=== PATIENT | female | born 2005 | race Hispanic/Latino ===

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

== ENCOUNTER 2024-06-12 19:30 | Emergency (ER) | payer SELFPAY ==
[~2024-06-12] VITALS: Ht 157.5 cm; Wt 85.3 kg
[~2024-06-12 19:30] MED LIST changes: +AMOX1TAB16 PO; +IBUP-2077 PO; +ONDA-243 PO
--- NOTE | 2024-06-12 19:37 | ERN ---
ED Note History of Present Illness Stated Complaint: C/O PAIN WHEN VOIDING W/FREQUENT URINATION Chief Complaint: Painful Urination Time Seen by MD: 19:32 Dictation: PATIENT IS A 18-YEAR-OLD FEMALE COMING IN TODAY WITH SUPRAPUBIC PAIN WITH DYSURIA URINARY URGENCY AND FREQUENCY FOR 2-3 DAYS. NO FEVER NO CHILLS NO NAUSEA VOMITING. NO PRIMARY CARE DOCTOR AND STATES SHE HAS A HISTORY OF UTIS. ONLY GOES TO EMERGENCY ROOMS FOR CARE. Allergies: Coded Allergies: No Known Allergies (Unverified Allergy, Unknown, 10/24/22) Home Meds Active Scripts Ondansetron (Ondansetron Odt) 4 Mg Tab.rapdis, 4 MG PO Q6HPRN PRN for nausea, #12 TAB 0 Refills Prov:[facility] 09/27/23 Ibuprofen (Ibuprofen 800 mg Tab) 800 Mg Tab, 1 TAB PO Q6H PRN for PAIN, #20 TAB 0 Refills Prov:QUE SING[facility] 09/27/23 Amoxicillin/Potassium Clav (Amox Tr-K Clv 875-125 mg Tab) 875 Mg-125 Mg Tablet, 1 EACH PO BID for 10 Days, #20 TAB 0 Refills Prov:FRANCISCO,QUE [facility] 09/27/23 Cephalexin (Cephalexin) 500 Mg Capsule, 500 MG PO TID for 10 Days, #30 CAP Prov:RAYMUNDO RAMIREZ 11/30/22 Famotidine (Pepcid) 40 Mg Tablet, 40 MG PO DAILY for 10 Days, #10 TAB Prov:RAYMUNDO RAMIREZ 11/30/22 Methylprednisolone (Medrol) 4 Mg Tab.ds.pk, 4 MG PO AD for 5 Days, #1 PACK Prov:RAYMUNDO RAMIREZ 11/30/22 Hydroxyzine HCl (Hydroxyzine HCl) 25 Mg Tablet, 25 MG PO BID for 5 Days, #10 TAB Prov:RAYMUNDO RAMIREZ 11/30/22 Reported Medications Ferrous Sulfate (Ferrous Sulfate) 325 Mg Ectab, 325 MG PO DAILYDINNER, #30 TAB.EC 11/12/22 Ibuprofen (Motrin Ib) 200 Mg Capsule, 600 MG PO Q6H, #20 CAP 11/12/22 Past Medical History Past Medical History: No Pertinent History Surgical History: None PSYCH History: no pertinent psych hx History: Not Applicable : 1 RN Note Reviewed/Agreed w/PFSH: Yes Review of System Dictation CONSTITUTIONAL: NEGATIVE EXCEPT FOR HPI HEAD/FACE: NEGATIVE EXCEPT FOR HPI EENT: NEGATIVE EXCEPT FOR HPI RESPIRATORY: NEGATIVE EXCEPT FOR HPI GASTROINTESTINAL/ABDOMINAL: NEGATIVE EXCEPT FOR HPI GENITOURINARY: NEGATIVE EXCEPT FOR HPI URINARY URGENCY AND FREQUENCY WITH DYSURIA MUSCULOSKELETAL: NEGATIVE EXCEPT FOR HPI INTEGUMENTARY: NEGATIVE EXCEPT FOR HPI NEUROLOGICAL/PSYCH: NEGATIVE EXCEPT FOR HPI HEMATOLOGIC/LYMPHATIC: NEGATIVE EXCEPT FOR HPI ALL SYSTEMS NEGATIVE, EXCEPT NOTED ABOVE. 13 POINT REVIEW OF SYSTEMS ASSESSED AND ALL NEGATIVE EXCEPT FOR ABOVE. Initial Vital Sign VS Vital Signs Date Time Temp Pulse Resp B/P (MAP) Pulse Ox O2 Delivery O2 Flow Rate FiO2 06/12/24 19:33 98.4 82 20 138/91 98 Room Air 06/12/24 20:01 0 21 Physical Exam Dictation VITAL SIGNS REVIEWED GENERAL APPEARANCE: ALERT, ORIENTED X 3, N MILD CUTE DISTRESS, WELL DEVELOPED, NOURISHED. HEAD AND FACE: NON-TRAUMATIC. EYES: PERRL, PINK CONJUNCTIVAS, EYELID NO TRAUMA, ANTERIOR CHAMBER WITH ARCUS SENILIS. EARS: PINNAS INTACT AND NO SIGNS OF TRAUMA OR ERYTHEMA EAR CANALS CLEAR AND NO DISCHARGE TM NO ERYTHEMA NOSE: NO DISCHARGE, NO BLEEDING. OROPHARYNX: MOUTH NORMAL, TONGUE PINK, PHARYNX CLEAR,NO ERYTHEMA, TONSILS NO EXUDATES, NO ABSCESSES NOTED, MUCOUS ME MBRANE MOIST NECK: SUPPLE, NON-TENDER, NO THYROMEGALY, NO MASSES, NO JVD, NO BRUITS BREAST:DEFERRED CHEST:NO TENDERNESS, NO CREPITUS, NO PARADOXICAL MOVEMENT, NO RETRACTIONS LUNGS:CLEAR, WELL-VENTILATED, SYMMETRIC, NO RALES, NO WHEEZING, NO RHONCHI, NO STRIDOR, GOOD BREATH SOUNDS BILATERALLY HEART: REGULAR RATE, REGULAR RHYTHM, NO MURMUR, NO GALLOPS VASCULAR: NO PERIPHERAL EDEMA, ABDOMEN: SOFT, POSITIVE BOWEL SOUNDS, NONDISTENDED, NO GUARDING, NONTENDER, NO REBOUND, NO MASSES NO HEPATOMEGALY, NO SPLENOMEGALY, NO FERNANDEZ'S SIGN, NO HERNIAS. RECTAL: DEFERRED GENITAL: DEFERRED NEUROLOGICAL: NORMAL SPEECH, MOTOR FUNCTION INTACT, SENSORY FUNCTION INTACT MUSCULOSKELETAL: NECK NONTENDER, FULL RANGE OF MOTION, BACK NONTENDER, FULL RANGE OF MOTION, EXTREMITIES: NONTENDER, FULL RANGE OF MOTION SKIN: COLOR PINK, DRY, NO TURGOR, NO RASH, NO LACERATIONS, NO ABRASIONS, NO CONTUSIONS. LYMPHATIC: DEFERRED Results (Laboratory/Radiology) Laboratory/Radiology Laboratory Tests Test 06/12/24 19:37 Urine Color LIGHT-YELLOW (YELLOW) Urine Appearance CLOUDY (CLEAR) H Urine pH 5.5 (5.0-8.0) Urine Specific [place] 1.019 (1.001-1.031) Urine Protein 20 mg/dL (NEGATIVE) H Urine Glucose (UA) NEGATIVE mg/dL (NEGATIVE) Urine Ketones 5 mg/dL (NEGATIVE) H Urine Occult Blood MODERATE (NEGATIVE) H Urine Nitrate NEGATIVE (NEGATIVE) Urine Bilirubin NEGATIVE mg/dL (NEGATIVE) Urine Urobilinogen 0.2 mg/dL (0.2-1.0) Urine Leukocyte Esterase 500 Mikayla/uL (NEGATIVE) H Urine RBC 26-50 /HPF (0-1) H Urine WBC TNTC /HPF (0-1) H Urine Squamous Epithelial Cells MOD /HPF (0-2) Urine Non-Squamous Epithelial Cells 1 /HPF (0-2) Urine Other Crystals (Auto) 1 /HPF (None Seen) Urine Bacteria RARE /HPF (None Seen) Labs Reviewed?: Yes ED Course ED Course Orders Procedure Category Date Status Time Urinalysis Profile LAB 06/12/24 Complete 19:34 Acetaminophen 500mg PHA 06/12/24 Complete Tab (Tylenol 500mg T 20:00 Phenazopyridine Hcl PHA 06/12/24 Complete 200 Mg Tab (Pyridium 20:00 Culture Urine GARCIA 06/12/24 Logged 19:53 Current Medications Medications (Trade) Dose Ordered Sig/[place] Route PRN Reason Start Time Stop Time Status Last Admin Dose Admin Acetaminophen (TYLenol 500MG TAB) 1,000 mg ONCE ONCE PO 06/12/24 20:00 06/12/24 20:01 DC 06/12/24 19:58 Phenazopyridine HCl (PYRIdium HCL 200 MG TAB) 200 mg ONCE ONCE PO 06/12/24 20:00 06/12/24 20:01 DC 06/12/24 19:58 Vital Signs Date Time Temp Pulse Resp B/P (MAP) Pulse Ox O2 Delivery O2 Flow Rate FiO2 06/12/24 20:01 98.2 80 18 135/88 98 Room Air* 0 21 06/12/24 19:33 98.4 82 20 138/91 98 Room Air 2014, we will discharge patient home with acute cystitis with hematuria she will be given Augmentin and Pyridium told to take Tylenol for pain and follow up with her doctor. Medical Decision Making MDM Medical discharge making based on urinalysis and treatment of pain. Patient has a acute cystitis with hematuria Discharged home with Augmentin 875b.i.d. for seven days and Pyridium Told increase water intake. And follow up with her doctor DX & DISP Disposition: Discharge Departure Impression: Primary Impression: Acute cystitis with hematuria Additional Impression: Dysuria Condition: Stable Scripts Phenazopyridine HCl (Pyridium) 200 Mg Tablet 200 MG PO TID for painful urination, #10 TAB 0 Refills Prov: MARTIN RAMOS NP 06/12/24 Amoxicillin/Potassium Clav (Amox Tr-K Clv 875-125 mg Tab) 875 Mg-125 Mg Tablet 1 EACH PO BID for 7 Days, #14 TAB 0 Refills Prov: MARTIN RAMOS NP 06/12/24 Additional Instructions: Follow-up with primary care provider in 1 to 2 days. Take medications as directed here in the emergency room. Okay to continue home medications unless otherwise discussed during your visit in the emergency room today. Return to your nearest emergency room if symptoms worsen or if there is no improvement. Call 911 if you need immediate assistance. Take Tylenol [id number] as needed and if no contraindications are present. Increase oral hydration. A wound culture or urine culture was ordered here in the emergency room department please follow-up with primary care provider and advise them to get repeat ports from our facility. If you had any Demario wrap/splints that were applied here, please do not remove them until you see your primary care or specialty. Take antibiotics as directed until gone. , increase your water intake. , follow up with your primary care doctor in 1-2 days. Referrals: JONATHON STEPHEN Jr., MD (PCP) Time of Disposition: 20:16 I have reviewed the case, and I agree with, Diagnosis and Plan MARTIN RAMOS NP Jun 12, 2024 19:37
[2024-06-12 19:47] LABS: APPEARANCE,URINE CLOUDY (CLEAR); BILIRUBIN,URINE NEGATIVE (NEGATIVE); COLOR,URINE LIGHT-YELLOW (YELLOW); GLUCOSE, URINE (UA) NEGATIVE (NEGATIVE); KETONES,URINE 5 mg/dL (NEGATIVE); LEUKOCYTE ESTERASE ,URINE 500 Leu/uL (NEGATIVE); NITRATE,URINE NEGATIVE (NEGATIVE); OCCULT BLOOD,URINE MODERATE (NEGATIVE); PH,URINE 5.5 (5.0-8.0); PROTEIN,URINE 20 mg/dL (NEGATIVE); UROBILINOGEN,URINE 0.2 mg/dL (0.2-1.0)
[2024-06-12 19:52] LABS: ADD UA MICROSCOPIC YES
[2024-06-12 19:56] LABS: BACTERIA,URINE RARE /HPF (None Seen); MUCUS,URINE RARE LPF (None Seen); NON-SQUAMOUS EPITHELIAL CELL 1 /HPF (0-2); RBC,URINE 26-50 /HPF (0-1); SQUAMOUS EPITHELIAL CELL,UR MOD /HPF (0-2); UNCLASSIFIED CRYSTAL 1 /HPF (None Seen); WBC,URINE TNTC /HPF (0-1)
[2024-06-12] MEDS: PHENAZOpyridine HCL 200 MG TAB 200 MG TABLET PO ONE (19:58)
[2024-06-12] MEDS: acetaMINOPHEN 500 MG TABLET PO ONE (19:58)
[2024-06-12 20:01] VITALS: BP 135/88; PULSE 80; RESP 18; TEMP 98.3; O2SAT 98
[2024-06-12] MEDS ORDERED: PHEN-776 PO (20:18)
[2024-06-12] MEDS ORDERED: AMOX1TAB16 PO (20:18)
--- NOTE | 2024-06-12 20:40 | NUR ---
DC DELAY DUE TO REGISTRATION
== END 2024-06-12 21:11 | disposition home or self-care (01) ==
LOC: EDH 19:30
DX: N30.01 Acute cystitis with hematuria (principal); R30.0 Dysuria
CPT/HCPCS: 81001; 87086; 87186